=== PATIENT | female | born 1985 | race Hispanic/Latino ===

== ENCOUNTER 2017-03-16 10:33 | Emergency (ER) | payer OTHER ==
--- NOTE | 2017-03-16 10:44 | Emergency Department Report ---
Stated Complaint: SRINIVASAN/CP/BODY ACHES/CP Time Seen by Provider: 03/16/17 10:40 - HPI History of Present Illness: PT states that she has had headache x 7 days, waxes and wanes + nausea + diarrhea + chest pain of note, pt reports taking Plan B 4 weeks ago. She states she has bleed for 2 weeks - ROS Review of Systems: + srinivasan + nausea + diarrhea + change in menstrual period - Exam Physical Exam: PT is alert, appropriate gcs 15 no focal weakness MSE screening note: Focused history and physical exam performed. Due to findings the following was ordered: labs ED Disposition for MSE Condition: Stable
[2017-03-16 11:59] LABS: Basophils % (Auto) 0.9 % (0.0-1.8); Eosinophils % (Auto) 6.4 % (0.0-4.3); Hematocrit 40.9 % (30.3-42.9); Mean Corpuscular HGB Conc 34 % (30-34); Mean Corpuscular Hemoglobin 32 pg (28-32); Mean Corpuscular Volume 92 fl (79-97); Platelet Count 178 K/mm3 (140-440); Red Blood Count 4.43 M/mm3 (3.65-5.03); Red Cell Distribution Width 12.3 % (13.2-15.2); White Blood Count 3.8 K/mm3 (4.5-11.0)
[2017-03-16 12:08] LABS: Alanine Aminotransferase 26 units/L (7-56); Albumin 4.2 g/dL (3.9-5); Albumin/Globulin Ratio 1.6 %; Alkaline Phosphatase 71 units/L (35-129); Anion Gap 15 mmol/L; BUN/Creatinine Ratio 15; Blood Urea Nitrogen 9 mg/dL (7-17); Calcium 8.8 mg/dL (8.4-10.2); Carbon Dioxide 25 mmol/L (22-30); Chloride 105.6 mmol/L (98-107); Glucose 83 mg/dL (65-100); Potassium 4.2 mmol/L (3.6-5.0); Sodium 141 mmol/L (137-145); Total Protein 6.9 g/dL (6.3-8.2)
[2017-03-16 12:36] LABS: Bilirubin,Urine NEG (Negative); Blood,Urine SM (Negative); Ketones,Urine NEG (Negative); Leukocyte Esterase,Urine TR (Negative); Nitrite,Urine NEG (Negative); Protein,Urine <15 mg/dL mg/dL (Negative); Urobilinogen,Urine < 2.0 mg/dL (<2.0)
[2017-03-16] MEDS ORDERED: TORADOL IM ONE (13:45)
[2017-03-16] MEDS ORDERED: TORADOL ONE (13:49)
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
[2017-03-16 14:45] VITALS: BP 109/79
== END 2017-03-16 14:46 | disposition home or self-care (01) ==
LOC: ED 10:33
DX: N92.6 Irregular menstruation, unspecified (principal); R51 Headache; R11.0 Nausea; R19.7 Diarrhea, unspecified; G43.909 Migraine, unspecified, not intractable, without status migrainosus
CPT/HCPCS: 36415; 80053; 81001; 84703; 85025; 93005; 93010; 96372; 99283; J1885

== ENCOUNTER 2019-02-25 21:30 | Emergency (ER) | payer MEDICAID, OTHER ==
[2019-02-25 22:57] VITALS: BP 125/86
[2019-02-25 23:52] LABS: Bacteria,Urine 1+ /HPF (Negative); Bilirubin,Urine NEG (Negative); Blood,Urine LG (Negative); Color,Urine Yellow (Yellow); Protein,Urine <15 mg/dL mg/dL (Negative); Urobilinogen,Urine < 2.0 mg/dL (<2.0)
[2019-02-25 23:53] LABS: Basophils # (Auto) 0.1 K/mm3 (0.0-0.1); Basophils % (Auto) 0.6 % (0.0-1.8); Eosinophils # (Auto) 0.3 K/mm3 (0.0-0.4); Eosinophils % (Auto) 2.6 % (0.0-4.3); Hematocrit 40.8 % (30.3-42.9); Hemoglobin 13.9 gm/dl (10.1-14.3); Lymphocytes # (Auto) 2.3 K/mm3 (1.2-5.4); Mean Corpuscular HGB Conc 34 % (30-34); Mean Corpuscular Volume 94 fl (79-97); Monocytes # (Auto) 0.8 K/mm3 (0.0-0.8); Platelet Count 243 K/mm3 (140-440); Red Blood Count 4.36 M/mm3 (3.65-5.03); Red Cell Distribution Width 12.5 % (13.2-15.2)
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
--- NOTE | 2019-02-26 02:08 | Ultrasound Report ---
ULTRASOUND OBSTETRIC Indication: +preg abd pain Findings: Transabdominal and transvaginal imaging is performed. There is a single, living intrauterine . [place]-rump length = 0.44 cm = 6 weeks, 1 day(s). heart rate is 133 beats per minute. There is a 2 cm cyst in the right ovary. The left ovary is not seen. There is no free fluid. Impression: Single, living intrauterine with estimated sonographic age of 6 weeks, 1 day(s). Signer Name: Behzad Smith MD Signed: 02/26/2019 2:04 AM Workstation Name: [id number]
--- NOTE | 2019-02-26 02:08 | Ultrasound Report ---
ULTRASOUND OBSTETRIC Indication: +preg abd pain Findings: Transabdominal and transvaginal imaging is performed. There is a single, living intrauterine . [place]-rump length = 0.44 cm = 6 weeks, 1 day(s). heart rate is 133 beats per minute. There is a 2 cm cyst in the right ovary. The left ovary is not seen. There is no free fluid. Impression: Single, living intrauterine with estimated sonographic age of 6 weeks, 1 day(s). Signer Name: Behzad Smith MD Signed: 02/26/2019 2:04 AM Workstation Name: [id number]
[2019-02-26] MEDS ORDERED: ZOFRAN ODT PO ONE (02:27)
== END 2019-02-26 02:41 | disposition home or self-care (01) ==
LOC: ED 21:30
DX: O20.0 Threatened abortion (principal); Z3A.01 Less than 8 weeks gestation of pregnancy
CPT/HCPCS: 36415; 76801; 76817; 81001; 84702; 85025; 86900; 86901; Q0162

== ENCOUNTER 2019-04-03 17:33 | Emergency (ER) | payer MEDICAID ==
--- NOTE | 2019-04-03 18:39 | Emergency Department Report ---
Blank Doc - Documentation Documentation: 33-year-old female that presents with n/v. Stated is 11 weeks . Denies any vaginal bleeding. This initial assessment/diagnostic orders/clinical plan/treatment(s) is/are subject to change based on patient's health status, clinical progression and re- assessment by fellow clinical providers in the ED. Further treatment and workup at subsequent clinical providers discretion. Patient/guardians urged not to elope from the ED as their condition may be serious if not clinically assessed and managed. Initial orders include: 1- Patient sent to [facility] for further evaluation and treatment 2- labs
[2019-04-03 19:47] LABS: BUN/Creatinine Ratio 15; Blood Urea Nitrogen 9 mg/dL (7-17); Calcium 9.3 mg/dL (8.4-10.2); Hemolysis Index 6
[2019-04-03 20:07] LABS: Basophils # (Auto) 0.1 K/mm3 (0.0-0.1); Basophils % (Auto) 0.9 % (0.0-1.8); Eosinophils # (Auto) 0.1 K/mm3 (0.0-0.4); Eosinophils % (Auto) 1.1 % (0.0-4.3); Hematocrit 42.4 % (30.3-42.9); Hemoglobin 14.8 gm/dl (10.1-14.3); Lymphocytes # (Auto) 1.8 K/mm3 (1.2-5.4); Lymphocytes % (Auto) 16.5 % (13.4-35.0); Mean Corpuscular HGB Conc 35 % (30-34); Mean Corpuscular Volume 92 fl (79-97); Monocytes # (Auto) 0.9 K/mm3 (0.0-0.8); Monocytes % (Auto) 8.3 % (0.0-7.3); Platelet Count 279 K/mm3 (140-440); Red Blood Count 4.61 M/mm3 (3.65-5.03); Red Cell Distribution Width 12.6 % (13.2-15.2)
[2019-04-03 20:38] LABS: Amorphous Crystals,Urine 3+; Bilirubin,Urine NEG (Negative); Blood,Urine NEG (Negative); Color,Urine Yellow (Yellow); Mucus,Urine 1+ /HPF; Protein,Urine <15 mg/dL mg/dL (Negative); Urobilinogen,Urine < 2.0 mg/dL (<2.0)
[2019-04-03 20:44] LABS: WBC,Urine < 1.0 /HPF (0.0-6.0)
[2019-04-03] MEDS ORDERED: REGLAN IV ONE (21:00)
[2019-04-03] MEDS ORDERED: PEPCID IV ONE (21:00)
[2019-04-03] MEDS ORDERED: D5NS 1,000 ML IV SCH ×2 (21:00→22:00)
[2019-04-03] MEDS ORDERED: ZOFRAN IV ONE (23:24)
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
[2019-04-04] MEDS ORDERED: D5NS 1,000 ML IV SCH (02:00)
[2019-04-04 04:11] VITALS: BP 98/53
== END 2019-04-04 04:40 | disposition home or self-care (01) ==
LOC: ED 17:33
DX: O21.0 Mild hyperemesis gravidarum (principal); E86.0 Dehydration; O99.511 Diseases of the respiratory system complicating pregnancy, first trimester; J45.909 Unspecified asthma, uncomplicated; O99.351 Diseases of the nervous system complicating pregnancy, first trimester; G43.909 Migraine, unspecified, not intractable, without status migrainosus; Z79.899 Other long term (current) drug therapy; Z3A.11 11 weeks gestation of pregnancy
CPT/HCPCS: 36415; 80048; 81001; 85025; 96361; 96374; 96375; 99283; J2405; J2765; J7042

== ENCOUNTER 2019-05-23 16:41 | Emergency (ER) | payer SELFPAY ==
[2019-05-23] MEDS ORDERED: SODIUM CHLORIDE 0.9% 500 ML 500 ML IV ONE (16:49)
[2019-05-23 17:14] LABS: Basophils % (Auto) 0.1 % (0.0-1.8); Eosinophils % (Auto) 0.2 % (0.0-4.3); Hematocrit 42.3 % (30.3-42.9); Hemoglobin 14.5 gm/dl (10.1-14.3); Lymphocytes # (Auto) 0.7 K/mm3 (1.2-5.4); Lymphocytes % (Auto) 6.5 % (13.4-35.0); Mean Corpuscular HGB Conc 34 % (30-34); Mean Corpuscular Volume 95 fl (79-97); Monocytes # (Auto) 0.8 K/mm3 (0.0-0.8); Monocytes % (Auto) 7.3 % (0.0-7.3); Platelet Count 232 K/mm3 (140-440); Red Blood Count 4.48 M/mm3 (3.65-5.03); Red Cell Distribution Width 12.6 % (13.2-15.2)
[2019-05-23] MEDS ORDERED: SODIUM CHLORIDE 0.9% 1000 ML 1,000 ML IV ONE ×2 (17:26→21:47)
[2019-05-23] MEDS ORDERED: ACETAMINOPHEN 500 MG TAB PO ONE (17:27)
[2019-05-23 17:33] LABS: INR 1.04 (0.87-1.13)
[2019-05-23 17:38] LABS: Alanine Aminotransferase 42 units/L (7-56); Albumin 3.9 g/dL (3.9-5); BUN/Creatinine Ratio 8; Blood Urea Nitrogen 5 mg/dL (7-17); Calcium 8.9 mg/dL (8.4-10.2); Hemolysis Index 8
[2019-05-23] MEDS ORDERED: ALBUTEROL 2.5 MG/3 ML NEBU IH ONE ×2 (17:39→22:38)
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
--- NOTE | 2019-05-23 19:17 | XRay Report ---
CHEST 1 VIEW INDICATION / CLINICAL INFORMATION: possible Sepsis. COMPARISON: None available. FINDINGS: SUPPORT DEVICES: None. HEART / MEDIASTINUM: No significant abnormality. LUNGS / PLEURA: No significant pulmonary or pleural abnormality. No pneumothorax. ADDITIONAL FINDINGS: No significant additional findings. IMPRESSION: 1. No acute findings. Signer Name: Aston Taylor MD Signed: 05/23/2019 7:12 PM Workstation Name: [id number]
[2019-05-23 21:10] LABS: Bilirubin,Urine NEG (Negative); Blood,Urine NEG (Negative); Color,Urine Yellow (Yellow); Protein,Urine <15 mg/dL mg/dL (Negative); Urobilinogen,Urine < 2.0 mg/dL (<2.0)
[2019-05-23] MEDS ORDERED: ONDANSETRON 4 MG/2 ML INJ IV ONE (21:47)
[2019-05-23] MEDS ORDERED: ONDANSETRON 4 MG/2 ML INJ ONE (21:50)
[2019-05-23] MEDS ORDERED: SODIUM CHLORIDE 0.9% 1000 ML 1,000 ML ONE (21:50)
[2019-05-23] MEDS ORDERED: NEOMY 3.5 MG/BACIT 400 UNITS/POLY B 5000 UNITS/GM OINT PACKET TP ONE (23:44)
[2019-05-24 01:30] VITALS: BP 108/55
== END 2019-05-23 23:40 | disposition home or self-care (01) ==
LOC: ED 16:41
DX: O26.892 Other specified pregnancy related conditions, second trimester (principal); B34.9 Viral infection, unspecified; O21.8 Other vomiting complicating pregnancy; O99.512 Diseases of the respiratory system complicating pregnancy, second trimester; J45.909 Unspecified asthma, uncomplicated; G43.909 Migraine, unspecified, not intractable, without status migrainosus; Z79.899 Other long term (current) drug therapy; Z3A.19 19 weeks gestation of pregnancy
CPT/HCPCS: 36415; 71045; 80053; 81001; 82140; 82805; 85025; 85610; 87040; 87086; 87116; 87400; 87430; 93005; 93010; 94640; 96360; 96361; 99285; J2405; J7030; J7040; 94644; A6250

== ENCOUNTER 2019-06-23 00:50 | Emergency (ER) | payer SELFPAY ==
[2019-06-22 23:33] LABS: Bilirubin,Urine NEG (Negative); Blood,Urine NEG (Negative); Color,Urine Amber (Yellow); Mucus,Urine 1+ /HPF
[~2019-06-23 00:50] MED LIST: LACTATED RINGERS 1,000 ML IV ONE
[2019-06-23] MEDS ORDERED: guaiFENesin DM 200/20 MG ORAL LIQD 10 ML PO ONE (03:48)
[2019-06-23] MEDS ORDERED: methylPREDNISolone Sod Succinate 125 MG/2 ML INJ IV ONE (03:49)
[2019-06-23] MEDS ORDERED: IPRATROPIUM 0.02% NEBU 2.5 ML IH ONE (03:49)
[2019-06-23] MEDS ORDERED: ALBUTEROL 2.5 MG/3 ML NEBU IH ONE (03:50)
--- NOTE | 2019-06-23 04:21 | XRay Report ---
CHEST 2 VIEWS, 06/23/2019 4:09 AM INDICATION: Cough COMPARISON: Chest radiograph, 05/23/2019 FINDINGS: Support devices: None Heart: The heart is normal in size. Lungs/pleura: The lungs are clear of focal airspace disease or significant pleural effusion. Additional findings: Evaluation of bony structures demonstrates no evidence of acute bony abnormality . IMPRESSION: 1. No evidence of acute cardiopulmonary process Signer Name: Ivette Skinner MD Signed: 06/23/2019 4:16 AM Workstation Name: [id number]
[2019-06-23] MEDS ORDERED: methylPREDNISolone Sod Succinate 125 MG/2 ML INJ ONE (04:39)
[2019-06-23 04:48] LABS: Basophils % (Auto) 0.5 % (0.0-1.8); Eosinophils # (Auto) 0.1 K/mm3 (0.0-0.4); Eosinophils % (Auto) 1.4 % (0.0-4.3); Hematocrit 34.5 % (30.3-42.9); Hemoglobin 12.2 gm/dl (10.1-14.3); Lymphocytes % (Auto) 32.2 % (13.4-35.0); Mean Corpuscular HGB Conc 36 % (30-34); Mean Corpuscular Volume 92 fl (79-97); Monocytes # (Auto) 0.8 K/mm3 (0.0-0.8); Monocytes % (Auto) 13.5 % (0.0-7.3); Platelet Count 210 K/mm3 (140-440); Red Blood Count 3.76 M/mm3 (3.65-5.03); Red Cell Distribution Width 12.1 % (13.2-15.2)
[2019-06-23 05:08] LABS: BUN/Creatinine Ratio 16; Blood Urea Nitrogen 8 mg/dL (7-17); Calcium 8.4 mg/dL (8.4-10.2); Hemolysis Index 11
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
[2019-06-23 05:32] VITALS: BP 113/65
== END 2019-06-23 06:11 | disposition home or self-care (01) ==
LOC: TRG 00:50 → ED 00:50 → TRG 01:12 → ED 06:11
DX: O99.512 Diseases of the respiratory system complicating pregnancy, second trimester (principal); J45.901 Unspecified asthma with (acute) exacerbation; J20.9 Acute bronchitis, unspecified; J06.9 Acute upper respiratory infection, unspecified; Z98.890 Other specified postprocedural states; Z79.899 Other long term (current) drug therapy; Z3A.22 22 weeks gestation of pregnancy
CPT/HCPCS: 36415; 71046; 80048; 81001; 85025; 87400; 94644; 96374; 99284; J2930

== ENCOUNTER 2019-10-10 20:20 | Outpatient (CLI) | payer MEDICAID ==
[2019-10-10 21:59] LABS: Bacteria,Urine 1+ /HPF (Negative); Bilirubin,Urine NEG (Negative); Blood,Urine MOD (Negative); Color,Urine Yellow (Yellow); Mucus,Urine FEW /HPF; Protein,Urine <15 mg/dL mg/dL (Negative); Urobilinogen,Urine < 2.0 mg/dL (<2.0)
[2019-10-10 22:01] LABS: Hematocrit 35.2 % (30.3-42.9); Hemoglobin 12.2 gm/dl (10.1-14.3); Mean Corpuscular HGB Conc 35 % (30-34); Mean Corpuscular Volume 91 fl (79-97); Platelet Count 229 K/mm3 (140-440); Red Blood Count 3.88 M/mm3 (3.65-5.03); Red Cell Distribution Width 12.7 % (13.2-15.2)
[2019-10-10 22:11] LABS: Alanine Aminotransferase 18 units/L (7-56); Uric Acid 4.2 mg/dL (3.5-7.6)
[2019-10-10 22:59] VITALS: BP 122/89
[2019-10-10] MEDS ORDERED: BUTALB/ACETAMINOPHEN/CAFFEINE TAB PO ONE (22:59)
== END 2019-10-10 23:17 | disposition home or self-care (01) ==
LOC: TRG 20:20 → APU 20:27 → TRG 23:12
PROVIDERS: ATTEND Obstetrics & Gynecology
DX: O26.893 Other specified pregnancy related conditions, third trimester (principal); R51 Headache; Z3A.38 38 weeks gestation of pregnancy
CPT/HCPCS: 36415; 59025; 81001; 82565; 83615; 84450; 84460; 84550; 85027

== ENCOUNTER 2019-10-15 11:45 | Inpatient (IN) | payer MEDICAID ==
[2019-10-15] MEDS ORDERED: ePHEDrine SULFATE 50 MG/1 ML INJ IV PRN (12:16)
[2019-10-15] MEDS ORDERED: TERBUTALINE 1 MG/1 ML INJ SUB-Q PRN (12:16)
[2019-10-15] MEDS ORDERED: fentaNYL 100 MCG/2 ML INJ IV PRN (12:16)
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
[2019-10-15] MEDS ORDERED: AMPICILLIN/NS 2 GM/100 ML 2 GM/100 ML BAG IV ONE (13:00)
[2019-10-15] MEDS ORDERED: LACTATED RINGERS 1,000 ML IV SCH (13:00)
[2019-10-15] MEDS ORDERED: LIDOCAINE (2%) 20 MG/1 ML VIAL 20 ML MDV INFILTRATI ONE (13:00)
[2019-10-15] MEDS ORDERED: ONDANSETRON 4 MG/2 ML INJ IV ONE (13:02)
[2019-10-15] MEDS: OXYTOCIN 20 UNIT/1000ML DRIP 20 UNITS/1,000 ML BAG IV SCH ×2 (13:36→15:47)
[2019-10-15] MEDS ORDERED: WITCH HAZEL/ GLYCERIN PAD TP PRN (13:47)
[2019-10-15] MEDS ORDERED: HYDROcodone/ACETAMINOPHEN 5-325 MG TAB PO PRN (13:47)
[2019-10-15] MEDS ORDERED: MAGNESIUM HYDROXIDE (MOM) ORAL LIQD UDC PO PRN (13:47)
[2019-10-15] MEDS ORDERED: LANOLIN/ZINC/DIMETHICONE (LANSINOH) 7 GM TP PRN (13:47)
[2019-10-15 13:51] LABS: Hematocrit 38.3 % (30.3-42.9); Hemoglobin 13.3 gm/dl (10.1-14.3); Mean Corpuscular HGB Conc 35 % (30-34); Mean Corpuscular Volume 90 fl (79-97); Platelet Count 234 K/mm3 (140-440); Red Blood Count 4.26 M/mm3 (3.65-5.03); Red Cell Distribution Width 12.8 % (13.2-15.2)
--- NOTE | 2019-10-15 13:53 | Procedure Note ---
OB Delivery Note - Delivery Date of Delivery: 10/15/19 Surgeon: CADY AL Estimated blood loss: 200cc - Vaginal Delivery presentation: vertex Delivery position: OA Intrapartum events: precipitous labor- <3hr Delivery induction: none Delivery monitor: external FHT, external uterine Route of delivery: Delivery placenta: spontaneous Delivery cord: nuchal cord, 3 umbilical vessels Episiotomy: none Delivery laceration: none Anesthesia: none Delivery comments: Spontaneous vaginal delivery at 13:29 of liveborn male infant weighing 5 lb. 14 oz. over intact perineum with apgars of 8/9. Nuchal cord times 1, manually reduced. Thin cord. Baby placed skin to skin with mom immediately after . Spontaneous cry and respirations. Baby bulb suctioned and dried with warm towels. 3 vessel cord double clamped and cut. Cord blood obtained. Spontaneous delivery of intact placenta and membranes by beebe mechanism. EBL 200 cc. Pitocin to IV fluids after delivery of placenta. Fundus firm and midline. No lacerations noted. Vaginal sweep negative. Sponge count correct.
[2019-10-15] MEDS ORDERED: ACETAMINOPHEN 325 MG TAB PO ONE (14:00)
[2019-10-15] MEDS: IBUPROFEN 600 MG TAB PO SCH ×2 (14:56→20:55)
[2019-10-15] MEDS ORDERED: AMPICILLIN/NS 1 GM/50 ML 1 GM/50 ML BAG IV SCH (17:00)
[2019-10-15 17:01] LABS: Hepatitis C Virus Antibody Non-Reactive (NonReactive)
[2019-10-16] MEDS: ACETAMINOPHEN 500 MG TAB PO PRN ×3 (00:04→18:46)
[2019-10-16 01:06] LABS: Hematocrit 31.2 % (30.3-42.9); Hemoglobin 10.8 gm/dl (10.1-14.3)
[2019-10-16 01:30] LABS: Alanine Aminotransferase 20 units/L (7-56); Albumin 2.6 g/dL (3.9-5); BUN/Creatinine Ratio 10; Blood Urea Nitrogen 6 mg/dL (7-17); Calcium 8.2 mg/dL (8.4-10.2); Hemolysis Index 9
[2019-10-16 02:37] LABS: Bacteria,Urine 1+ /HPF (Negative); Bilirubin,Urine NEG (Negative); Blood,Urine LG (Negative); Color,Urine Yellow (Yellow); Mucus,Urine FEW /HPF; Protein,Urine <15 mg/dL mg/dL (Negative); Urobilinogen,Urine < 2.0 mg/dL (<2.0)
[2019-10-16 02:38] LABS: RBC,Urine > 182.0 /HPF (0.0-6.0)
[2019-10-16 02:41] LABS: Amphetamine Screen,Urine PRESUMPTIVE NEGATIVE; Benzodiazepines Screen,Urine PRESUMPTIVE NEGATIVE; Cannabinoid Screen,Urine PRESUMPTIVE NEGATIVE; Cocaine Screen,Urine PRESUMPTIVE NEGATIVE; Methadone Screen,Urine PRESUMPTIVE NEGATIVE; Opiate Screen,Urine PRESUMPTIVE NEGATIVE
[2019-10-16 03:09] LABS: Uric Acid 3.6 mg/dL (3.5-7.6)
[2019-10-16] MEDS: IBUPROFEN 600 MG TAB PO SCH ×4 (05:56→21:20)
[2019-10-16] MEDS: FERROUS SULFATE 325 MG TAB PO SCH ×2 (09:57→21:20)
--- NOTE | 2019-10-16 09:57 | Progress Note ---
Assessment and Plan - Patient Problems (1) Status post normal vaginal delivery Current Visit: Yes Status: Acute Plan to address problem: PPD 1 - stable Continue routine orders Discharge to home later today Follow-up at [facility] as needed or in 6 weeks for exam (2) Rh negative status during Current Visit: Yes Status: Acute Qualifiers: Trimester: third trimester Qualified Code(s): O26.893 - Other specified related conditions, third trimester; Z67.91 - Unspecified blood type, Rh negative Plan to address problem: Rhogam not needed. Baby is B negative per RN. Subjective - Subjective Date of service: 10/16/19 Principal diagnosis: PPD #1, s/p Interval history: see [facility] - H&P and OB Delivery Procedure Note Patient reports: appetite normal, voiding normally, pain well controlled, ambulating normally, no dizzy ambulation [place]: doing well, other (breast and bottle feeding) Objective - Vital Signs Latest vital signs: Vital Signs Temp Pulse Resp BP BP Pulse Ox 10/16/19 07:58 97.9 F 55 L 20 99/63 98 10/16/19 07:47 97.7 F 75 20 127/88 96 10/16/19 06:31 18 10/16/19 06:00 83 18 125/81 97 10/16/19 05:56 18 10/16/19 01:04 18 10/16/19 00:09 98.2 F 79 18 125/80 94 10/16/19 00:04 18 10/15/19 21:55 18 10/15/19 21:48 98.3 F 83 20 140/85 95 10/15/19 20:55 18 10/15/19 16:00 97.8 F 76 15 122/87 96 10/15/19 15:47 79 119/82 10/15/19 15:20 92 H 84 10/15/19 15:19 73 97 10/15/19 15:14 71 97 10/15/19 15:09 80 98 10/15/19 15:04 73 97 10/15/19 14:59 89 96 10/15/19 14:56 18 10/15/19 14:54 76 97 10/15/19 14:49 85 97 10/15/19 14:44 82 96 10/15/19 14:39 72 123/79 98 10/15/19 14:34 88 99 10/15/19 14:30 97.8 F 10/15/19 14:29 79 98 10/15/19 14:24 81 98 10/15/19 14:19 83 98 10/15/19 14:14 80 97 10/15/19 14:09 89 97 10/15/19 14:04 91 H 98 10/15/19 13:59 82 98 10/15/19 13:54 81 99 10/15/19 13:49 89 99 10/15/19 13:43 96 H 98 10/15/19 13:41 77 91 10/15/19 13:39 74 99 10/15/19 13:34 73 97 10/15/19 13:29 66 92 10/15/19 13:24 66 99 10/15/19 13:19 79 99 10/15/19 13:15 62 116/68 10/15/19 13:14 81 100 10/15/19 13:09 85 98 10/15/19 13:04 71 97 10/15/19 12:59 83 98 10/15/19 12:54 81 97 10/15/19 12:27 73 97 10/15/19 12:22 86 98 10/15/19 12:17 74 98 10/15/19 12:13 97.6 F 79 20 129/85 95 10/15/19 12:12 77 97 10/15/19 12:09 71 129/85 10/15/19 12:07 70 96 10/15/19 12:02 69 97 10/15/19 11:57 77 97 10/15/19 11:55 85 94 10/15/19 11:52 81 96 Intake and Output 10/15/19 10/16/19 10/16/19 23:59 07:59 15:59 Intake Total 250 240 Output Total 400 1400 Balance -150 -1160 Intake: IV 10 Hand 10 Oral 240 240 Output: Urine 400 1400 Void 400 1400 Other: Total, Intake Amount 240 240 Total, Output Amount 400 900 # Voids Void 1 1 - Exam Cardiovascular: Present: Regular rate Lungs: Present: Clear to auscultation Abdomen: Present: normal appearance, soft Vulva: both: normal Uterus: Present: normal, firm, fundal height at umbilicus Extremities: Present: normal Comments: small lochia - Labs Labs: Abnormal lab results 10/15/19 10/16/19 10/16/19 Range/Units 13:00 00:48 01:45 MCHC 35 H (30-34) % RDW 12.8 L (13.2-15.2) % Sodium 131 L (137-145) mmol/L Carbon Dioxide 19 L (22-30) mmol/L BUN 6 L (7-17) mg/dL Creatinine 0.6 L (0.7-1.2) mg/dL Calcium 8.2 L (8.4-10.2) mg/dL Alkaline Phosphatase 207 H (35-129) units/L Lactate Dehydrogenase 207 H (91-180) units/L Total Protein 5.6 L (6.3-8.2) g/dL Albumin 2.6 L (3.9-5) g/dL Urine WBC (Auto) 82.0 H (0.0-6.0) /HPF
--- NOTE | 2019-10-16 10:02 | Discharge Summary ---
Providers - Providers Date of Admission: 10/15/19 11:48 Date of discharge: 10/16/19 Attending physician: LORENA LOPEZ MD Primary care physician: LORENA LOPEZ MD Hospitalization Reason for admission: active labor, IUP at term Delivery: Episiotomy: none Laceration: none Other procedures: none complications: none Discharge diagnosis: IUP at term delivered [employer] baby: male Hospital course: Uncomplicated Condition at discharge: Stable Disposition: DC-01 TO HOME OR SELFCARE - Discharge Diagnoses (1) Status post normal vaginal delivery Status: Acute (2) Rh negative status during Status: Acute Qualifiers: Trimester: third trimester Qualified Code(s): O26.893 - Other specified related conditions, third trimester; Z67.91 - Unspecified blood type, Rh negative Plan - Provider Discharge Summary Activity: routine, no sex for 6 weeks, no heavy lifting 4 weeks, no strenuous exercise Diet: routine Instructions: routine Additional instructions: [] Smoking cessation referral if applicable(refer to patient education folder for contact #) [] Refer to [facility]'s [facility] Booklet Call your doctor immediately for: * Fever > 100.5 * Heavy vaginal bleeding ( >1 pad per hour) * Severe persistent headache * Shortness of breath * Reddened, hot, painful area to leg or breast * Drainage or odor from incision. * Keep incision clean and dry at all times and follow doctor's instructions regarding bathing/showering - Follow up plan Follow up: LORENA LOPEZ MD [Primary Care Provider] - 6 Weeks (Follow[facility]up at [facility] as needed or in 6 weeks for exam) Forms: [facility] Discharge Summary
[2019-10-16] MEDS ORDERED: LORazepam 2 MG/ML VIAL ONE (12:47)
[2019-10-17] MEDS: IBUPROFEN 600 MG TAB PO SCH ×3 (05:10→15:55)
[2019-10-17] MEDS: ACETAMINOPHEN 500 MG TAB PO PRN ×2 (07:56→21:17)
[2019-10-17] MEDS: FERROUS SULFATE 325 MG TAB PO SCH ×2 (11:21→21:17)
[2019-10-17] MEDS ORDERED: BUTALB/ACETAMINOPHEN/CAFFEINE TAB PO PRN (17:03)
[2019-10-17 19:03] LABS: Bacteria,Urine 1+ /HPF (Negative); Bilirubin,Urine NEG (Negative); Blood,Urine LG (Negative); Color,Urine Yellow (Yellow); Mucus,Urine FEW /HPF; Protein,Urine <15 mg/dL mg/dL (Negative); Urobilinogen,Urine < 2.0 mg/dL (<2.0)
[2019-10-17 19:06] LABS: Creatinine,Urine 178.2 mg/dL (0.1-20.0)
[2019-10-17 19:55] LABS: Hematocrit 30.9 % (30.3-42.9); Hemoglobin 10.4 gm/dl (10.1-14.3); Mean Corpuscular HGB Conc 34 % (30-34); Mean Corpuscular Volume 93 fl (79-97); Platelet Count 224 K/mm3 (140-440); Red Blood Count 3.33 M/mm3 (3.65-5.03); Red Cell Distribution Width 12.9 % (13.2-15.2)
[2019-10-17 20:04] LABS: Alanine Aminotransferase 17 units/L (7-56); Uric Acid 3.9 mg/dL (3.5-7.6)
[2019-10-17 22:29] VITALS: BP 120/82
== END 2019-10-17 22:30 | disposition home or self-care (01) | DRG 775 ==
LOC: TRG 11:45 → APU 11:46 → LD 11:48 → TRG 11:49 → OB 16:24
PROVIDERS: ADMIT Obstetrics & Gynecology; ATTEND Obstetrics & Gynecology
PROC: 10E0XZZ Delivery of Products of Conception, External Approach (ICD-10-PCS; principal; 2019-10-15)
DX: O62.3 Precipitate labor (principal); J45.909 Unspecified asthma, uncomplicated; O69.81X0 Labor and delivery complicated by cord around neck, without compression, not applicable or unspecified; O26.893 Other specified pregnancy related conditions, third trimester; O99.52 Diseases of the respiratory system complicating childbirth; Z3A.39 39 weeks gestation of pregnancy; Z37.0 Single live birth; Z80.9 Family history of malignant neoplasm, unspecified; Z82.3 Family history of stroke; Z79.51 Long term (current) use of inhaled steroids; Z67.41 Type O blood, Rh negative
CPT/HCPCS: 36415; 80053; 80307; 81001; 82150; 82565; 82570; 83036; 83615; 84450; 84460; 84550; 85014; 85018; 85027; 86592; 86706; 86762; 86803; 86850; 86900; 86901; 87086; 87806; G0378; A6250; J2060; J2405; J2590; J7120